=== PATIENT | female | born 1960 | race Caucasian/White ===

== ENCOUNTER → 2022-06-19 | Day surgery (SDC) | payer OTHER ==
[~2022-06-19] MED LIST: ARMOUR THYROID60 MG PO; BUPROPION HCL100 MG PO; DEXAMETHASONE SOD PHOS 10 MG/1 ML VIAL ONE; FENTANYL CITRATE/PF 100MCG/2 ML INJ ONE; FISH OIL 1,0001 EAC7; HYDROCODONE-AC118 M1; HYDROCODONE/APAP 7.5MG-325MG 1 EA TAB ONE; LACTATED RINGER'S 1,000 ML ONE; LIDOCAINE HCL 2% LOCAL INJ 5 ML SDV VIAL INJ ONE; MELOXICAM7.5 MG PO; MIDAZOLAM HCL 2 MG/2 ML VIAL ONE; MONTELUKAST SOD10 MG PO; ONDANSETRON HCL INJ 2MG/ML 2ML 2 MG/ML VIAL ONE; POVIDONE IODINE 0.05% 0.05 % ML PO ONE; PROPOFOL IV EMULSION 10 MG/ML 20 ML VIAL ONE; ROPIVACAINE 0.5% 5 MG/ML 30 ML SDV ONE; SPIRONOLACTONE25 MG PO
[2022-06-19] MEDS: HYDROMORPHONE 1MG/1ML INJ ONE ×3 (13:37→13:57)
[2022-06-19 14:30] VITALS: BP 150/71; PULSE 60; RESP 15; O2SAT 99
== END | disposition home or self-care (01) ==
LOC: OR 10:34
PROVIDERS: ATTEND Specialist
DX: S82.61XA Displaced fracture of lateral malleolus of right fibula, initial encounter for closed fracture (principal); I10 Essential (primary) hypertension; J45.909 Unspecified asthma, uncomplicated; W01.0XXA Fall on same level from slipping, tripping and stumbling without subsequent striking against object, initial encounter; Z01.810 Encounter for preprocedural cardiovascular examination; Z79.1 Long term (current) use of non-steroidal anti-inflammatories (NSAID); Z79.899 Other long term (current) drug therapy
CPT/HCPCS: 76000; 93005; C1713; J0690; J1100; J1170; J2001; J2250; J2405; J2795